=== PATIENT | female | born 1970 | race Caucasian/White ===

== ENCOUNTER 2017-08-06 05:03 | Emergency (ER) | payer OTHER ==
[~2017-08-06] VITALS: Ht 165.1 cm; Wt 102.1 kg
[~2017-08-06 05:03] MED LIST: ACYCLOVIR800 MG PO; KEFLEX 500MG.500 MG PO; NORCO 325 MG-51 TAB PO; PROPRANOLOL HCL20 MG PO; VICODIN 5/500 T1 TAB PO; VOLTAREN75 MG PO
[2017-08-06 05:17] LABS: URINE BILIRUBIN - DIPSTICK NEGATIVE (NEG); URINE BLOOD NEGATIVE (NEG)
[2017-08-06] MEDS ORDERED: LISINOPRIL10 MG PO (05:17)
--- OUTSIDE RECORDS SUMMARY | 2017-08-06 05:28 | External Medical Summary Rpt | CCD ---
Author Author , MARIZOL FONTANA Address Unknown Phone [email or web address] Purpose Continuity of Care Document - 04-28-2017 through 2016 Problems Code Diagnosis DOS Provider Status M25.519 PAIN IN 04-28-2017 UNSPECIFIED SHOULDER B02.9 ZOSTER WITHOUT COMPLICATIO NS Results Labs Lab Lab Date Result Refere Interp Status Commen Order Detail nces retati t Range on Urinalysis with microscopy (08-06-2017 05:10) Urine 08-06- CLEAR CLEAR complet appeara 017 CLEAR L ed nce 05:10 determi nation Amorpho TRACE NONE complet us 017 TRACE L ed sedimen 05:10 t detecti on in urine se Urine NEGATIV NEG complet total 017 E ed bilirub 05:10 NEGATIV in E L detecti on by test Urine NEGATIV NEG complet blood 017 E ed detecti 05:10 NEGATIV on E L Urine YELLOW YELLOW complet color 017 YELLOW ed 05:10 L Glucose 08-06- = NEG complet ur 017 NEGATIV ed test 05:10 E strip Urine NEGATIV NEG complet ketones 017 E ed 05:10 NEGATIV detecti E L on by mg/dL automat ed mayito Mucus NEGATIV NEG complet detecti 017 E ed on in 05:10 NEGATIV urine E L sedimen t by lig Urine NEGATIV NEG complet nitrite 017 E ed 05:10 NEGATIV detecti E L on by test strip Urine = 6.0 5.0-8.5 complet pH 017 ed 05:10 Urine = NEG complet protein 017 NEGATIV ed 05:10 E mg/dL measure ment by automat ed t Urine = 1.025 1.005-1 complet specifi 017 .030 ed c 05:10 gravity measure ment [place] 11-19-2 5-10 0-5 complet s 017 5-10 L ed epithel 05:10 #/hpf ial cells detecti on in u Urine 08-06-2 0.2 0.2 NEG complet urobili 017 L ed nogen 05:10 E.U./dL detecti on by test str Bacteri 08-06-2 FEW FEW O complet a 017 L ed detecti 05:10 on in urine sedimen t by Urinalysis dipstick W Reflex Microscopic panel in Urine (08-06-2017 05:10) Amorpho 08-06-2 TRACE NONE complet us 017 ed sedimen 05:10 t [Presen ce] in Urine sedimen t by Light microsc opy Bacteri 08-06-2 FEW O complet a 017 ed [Presen 05:10 ce] in Urine sedimen t by Light microsc opy Epithel 08-06-2 5-10 0#/hp complet ial 017 f - ed cells.s 05:10 5#/hp quamous f [Presen ce] in Urine sedimen t by Microsc opy high power field Urinalysis dipstick W Reflex Microscopic panel in Urine (08-06-2017 05:10) Appeara 08-06-2 CLEAR CLEAR complet nce of 017 ed Urine 05:10 Bilirub 08-06-2 NEGATIV NEG complet in 017 E ed [Presen 05:10 ce] in Urine by Test strip Erythro 08-06-2 NEGATIV NEG complet cytes 017 E ed [Presen 05:10 ce] in Urine Color 08-06-2 YELLOW YELLOW complet of 017 ed Urine 05:10 Ketones 08-06-2 NEGATIV NEG complet 017 E ed [Presen 05:10 ce] in Urine by Automat ed test strip Mucus -19-2 NEGATIV NEG complet [Presen 017 E ed ce] in 05:10 Urine sedimen t by Light microsc opy Nitrite --2 NEGATIV NEG complet 017 E ed [Presen 05:10 ce] in Urine by Test strip Urobili -19-2 0.2 NEG complet nogen 017 ed [Presen 05:10 ce] in Urine by Test strip
--- OUTSIDE RECORDS SUMMARY | 2017-08-06 05:28 | External Medical Summary Rpt | CCD ---
Author Author [employer] Organization [employer] Address Unknown Phone Unavailable Purpose Continuity of Care Document - through 2016
--- OUTSIDE RECORDS SUMMARY | 2017-08-06 05:28 | External Medical Summary Rpt | CCD ---
Author Author , MARIZOL FONTANA Address Unknown Phone [email or web address] Purpose Continuity of Care Document - 04-28-2017 [...]
--- OUTSIDE RECORDS SUMMARY | 2017-08-06 05:28 | External Medical Summary Rpt ---
Author Author MARIZOL Draper, [employer] Address Unknown Phone Unavailable Results Urinalysis dipstick W Reflex Microscopic panel in Urine Observa Value Referen Units Interpr Notes Date tion ce etation Range Appeara CLEAR CLEAR No No No Aug 06 nce of informa informa informa 2017 Urine tion in tion in tion in 5:10 AM source source source data data data Amorpho TRACE NONE No No No Aug 06 us informa informa informa 2017 sedimen tion in tion in tion in 5:10 AM t source source source [Presen data data data ce] in Urine sedimen t by Light microsc opy Bacteri FEW O No No No Aug 06 a informa informa informa 2016 [Presen tion in tion in tion in 5:10 AM ce] in source source source Urine data data data sedimen t by Light microsc opy Bilirub NEGATIV NEG No No No Aug 06 in E informa informa informa 2016 [Presen tion in tion in tion in 5:10 AM ce] in source source source Urine data data data by Test strip Erythro NEGATIV NEG No No No Aug 06 cytes E informa informa informa 2016 [Presen tion in tion in tion in 5:10 AM ce] in source source source Urine data data data Color YELLOW YELLOW No No No Aug 06 of informa informa informa 2017 Urine tion in tion in tion in 5:10 AM source source source data data data Glucose NEG No No No Aug 06 [Mass/vol informati informati informati 2016 5:10 ume] in on in on in on in AM Urine by source source source Test data data data strip Ketones NEGATIV NEG mg/dL No No Aug 06 E informa informa 2016 [Presen tion in tion in 5:10 AM ce] in source source Urine data data by Automat ed test strip Mucus NEGATIV NEG No No No Aug 06 [Presen E informa informa informa 2017 ce] in tion in tion in tion in 5:10 AM Urine source source source sedimen data data data t by Light microsc opy Nitrite NEGATIV NEG No No No Aug 06 E informa informa informa 2016 [Presen tion in tion in tion in 5:10 AM ce] in source source source Urine data data data by Test strip pH of 5.0 - 8.5 No Normal No Aug 06 Urine informati informati 2017 5:10 on in on in AM source source data data Protein NEG mg/dL No No Aug 06 [Mass/vol informati informati 2017 5:10 ume] in on in on in AM Urine by source source Automated data data test strip Specific 1.005 - No Normal No Aug 06 gravity 1.030 informati informati 2016 5:10 of Urine on in on in AM source source data data Epithel 5-10 0 - 5 #/hpf No No Aug 06 ial informa informa 2016 cells.s tion in tion in 5:10 AM quamous source source data data [Presen ce] in Urine sedimen t by Microsc opy high power field Urobili 0.2 NEG E.U./dL No No Aug 06 nogen informa informa 2016 [Presen tion in tion in 5:10 AM ce] in source source Urine data data by Test strip Urinalysis dipstick W Reflex Microscopic panel in Urine Observa Value Referen Units Interpr Notes Date tion ce etation Range Appeara CLEAR CLEAR No No No Aug 06 nce of informa informa informa 2016 Urine tion in tion in tion in 5:10 AM source source source data data data Bilirub NEGATIV NEG No No No Aug 06 in E informa informa informa 2016 [Presen tion in tion in tion in 5:10 AM ce] in source source source Urine data data data by Test strip Erythro NEGATIV NEG No No No Aug 06 cytes E informa informa informa 2016 [Presen tion in tion in tion in 5:10 AM ce] in source source source Urine data data data Color YELLOW YELLOW No No No Aug 06 of informa informa informa 2017 Urine tion in tion in tion in 5:10 AM source source source data data data Glucose NEG No No No Aug 06 [Mass/vol informati informati informati 2016 5:10 ume] in on in on in on in AM Urine by source source source Test data data data strip Ketones NEGATIV NEG mg/dL No No Aug 06 E informa informa 2016 [Presen tion in tion in 5:10 AM ce] in source source Urine data data by Automat ed test strip Mucus NEGATIV NEG No No No Aug 06 [Presen E informa informa informa 2016 ce] in tion in tion in tion in 5:10 AM Urine source source source sedimen data data data t by Light microsc opy Nitrite NEGATIV NEG No No No Aug 06 E informa informa informa 2016 [Presen tion in tion in tion in 5:10 AM ce] in source source source Urine data data data by Test strip pH of 5.0 - 8.5 No Normal No Aug 06 Urine informati informati 2016 5:10 on in on in AM source source data data Protein NEG mg/dL No No Aug 06 [Mass/vol informati informati 2016 5:10 ume] in on in on in AM Urine by source source Automated data data test strip Specific 1.005 - No Normal No Aug 06 gravity 1.030 informati informati 2016 5:10 of Urine on in on in AM source source data data Urobili 0.2 NEG E.U./dL No No Aug 06 nogen informa informa 2016 [Presen tion in tion in 5:10 AM ce] in source source Urine data data by Test strip
--- OUTSIDE RECORDS SUMMARY | 2017-08-06 05:28 | External Medical Summary Rpt | CCD ---
Demographics Preferred Language Greenlandic Marital Status Unknown Alevism Affiliation Unknown Race Unknown Ethnic Group Unknown Author Author , BLAS FONTANA Address Unknown Phone Immunization No patient found.
--- OUTSIDE RECORDS SUMMARY | 2017-08-06 05:28 | External Medical Summary Rpt | CCD ---
Demographics Preferred Language German Marital Status Unknown Zoroastrian Affiliation Unknown Race Unknown Ethnic Group Unknown Author Author , BLAS FONTANA Address Unknown Phone Immunization No patient found.
[2017-08-06 06:03] LABS: HEMOGLOBIN 14.3 g/dL (12.2-16.2); LYMPH # 1.5 K/mm3 (0.7-4.5); LYMPH % 26.5 % (10-50.0)
--- NOTE | 2017-08-06 06:27 | Emergency Room Report ---
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 N Clinical Suspician of Infection? N Mental Status: 1 - Regular (Normal Baseline) Sepsis Risk:Low Sepsis Risk Have you (or family members/close friends) recently traveled outside the [place]? N If Yes, where/when: Have you had exposure to infectious disease within the past month? N TB? Other? Specify: Source patient, RN notes reviewed, old records Exam Limitations no limitations Comment pt with acute rt sided abd pain with no rash or hematuria- pt with pain which started today- Cardiac Chest Pain Chest pain indicative of cardiac No Timing/Duration this evening Severity moderate ALLERGIES Coded Allergies: No Known Allergies (12/28/16) Home Medications Reported Medications Lisinopril 10 MG PO DAILY #30 History Medical History General CAD? No Angina: No CT: No Hypertension? Yes Hyperlipidemia? No CHF? No DVT? No PE? No COPD? No Asthma? No Anemia? No GERD? No Gastric ulcers? No GI Bleed? No Hernia? No Thyroid Problems? No Hypothyroidism? No CVA? No Seizures? No Diabetes? No Renal Insuffiency? No End Stage Renal Disease? No UTI? No Stones? No GB Disease: Yes Nephritic Syndrome? No Asplenia? No Hepatitis? No Sickle Cell Disease? No Arthritis? No Migraines? No Cataracts? No Glaucoma? No MRSA? No HIV? No TB? No Anxiety? No Depression? No Cancer? 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 Respiratory denies cough, denies shortness of breath Cardiovascular denies chest pain, denies palpitations, denies syncope Gastrointestinal see HPI, abdominal pain, denies diarrhea, nausea, denies vomiting Genitourinary denies: dysuria, frequency, hesitancy, hematuria. Musculoskeletal denies back pain, denies joint pain, denies joint swelling, denies neck pain Skin denies rash Psychiatric/Neurological denies headache, denies seizure Physical Exam Vital Signs Vital Signs Date Time Temp Pulse Resp B/P Pulse O2 O2 Flow FiO2 Ox Delivery Rate 08/06 0611 76 18 120/73 98 08/06 0532 18 08/06 0510 97.9 79 20 152/77 100 - WBC >12,000 or <4,000 or 10% bands? 2 or more SIRS Criteria Met? B/P:120/73 MAP:102 Creatinine >2.0? UA output<0.5ml/kg/hr for 2 hrs? Platelet count >100,000? Lactate >2.0mmol/1? INR >1.2 or PTT > than 60 sec? Evidence of Organ Dysfunction? Provider documented clinical suspician of infection? N Sepsis Criteria Count: 1 Sepsis Risk: Low Sepsis Risk General Appearance no apparent distress Eye Exam - bilateral eye PERRL, bilateral eye EOMI Ear, Nose, Throat normal ENT inspection Neck supple Respiratory Status No: respiratory distress. 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 No Results/Orders Laboratory Tests 08/06/17 0530: Sodium 141, Potassium 4.1, Chloride 104, Carbon Dioxide 27, BUN 13, Creatinine 0.9, Estimated Creat Clear 123, Estimated GFR (MDRD) 67, Glucose 148 H, Calcium 8.7, Total Bilirubin 0.4, AST 19, ALT 29, Alkaline Phosphatase 109, Total Protein 7.4, Albumin 3.9, Globulin 3.5 H, Albumin/Globulin Ratio 1.1, Amylase 35, Lipase 189, WBC 5.7, RBC 4.60, Hgb 14.3, Hct 43.2, MCV 94.0, RDW 13.1, Plt Count 215, MPV 9.4, Gran % 65.1, Gran # 3.7, Lymphocytes % 26.5, Monocytes % 4.8 , Eosinophils % 2.6, Basophils % 0.9, Lymphocytes # 1.5, Monocytes # 0.3, Eosinophils # 0.2, Basophils # 0.1, PUBS MCHC 33.1, MCH 31.1 08/06/17 0510: Urine Color YELLOW, Urine Appearance CLEAR, Urine pH 6.0, Ur Specific Corinne 1.025, Urine Protein NEGATIVE, Urine Ketones NEGATIVE, Urine Blood NEGATIVE, Urine Nitrate NEGATIVE, Urine Bilirubin NEGATIVE, Urine Urobilinogen 0.2, Ur Leukocyte Esterase NEGATIVE, Ur Squamous Epith Cells 5-10, Amorphous Sediment TRACE, Urine Bacteria FEW, Urine Glucose NEGATIVE Current Medication Orders Sig/Ольга Start time Last Medication Dose Route Stop Time Status Admin Ketorolac 30 MG ONCE ONE 08/06 530 DC 08/06 Tromethamine IV 08/06 531 0532 Ondansetron HCl 4 MG ONCE ONE 08/06 530 DC 08/06 IV 08/06 531 0533 Ondansetron HCl 0 .STK-MED ONE 08/06 530 DC .ROUTE Sodium Chloride 10 ML PRN PRN 08/06 530 AC IV 08/07 0524 Ketorolac 0 .STK-MED ONE 08/06 529 DC Tromethamine .ROUTE Orders Procedure Date/time Status DIET-NOTHING BY MOUTH 08/[address] ABD & PELVIS W/O CONTRAST 08/[address] ABD W/RLQ PAIN REQ 08/06 528 Active IV SALINE LOCK 08/06 528 Active LIPASE 08/06 528 Complete CBC WITH AUTO DIFF 08/06 528 Complete CHEM 12 PROFILE 08/06 528 Complete AMYLASE 08/06 528 Complete URINALYSIS/COMPLETE 08/06 0507 Complete XRAY/CT/US XRAY/CT/US CT abdomen, pelvis CT interpretation by discussed w/radiologist Time results known: 0638 CT Results abnormal (see report) Departure Departure Time of Disposition 0639 Disposition DC Home or Self Care(routine) Clinical Impression Primary Impression: Abdominal pain Qualifiers: Abdominal location: unspecified location Qualified Code: R10.9 - Unspecified abdominal pain Condition STABLE Referrals CHARISMA MARTINEZ APRN (Family) Patient Instructions DI for Abdominal Pain-Adult Additional Instructions use meds and see pcp for follow up Discharge Counseling Counseled pt/family regarding diagnosis, test results, medications/RX, follow up needs ED Critical Care Critical Care No at 0640
[2017-08-06 06:57] VITALS: BP 120/73
--- NOTE | 2017-08-06 13:12 | RADIOLOGY REPORT PS360 ---
CT ABD PELVIS W/O CONTRAST Ordering Physician: Sabina Alanis MD Patient Age: 47 years: Female HISTORY: RLQ PAIN . Difficulty with urination TECHNIQUE: Helical CT is performed the abdomen pelvis with no oral nor IV contrast utilized. COMPARISON :No relevant studies FINDINGS Lung bases appear clear with no acute findings. Borderline airway thickening. Heart normal size Abdomen/pelvis. Lack of oral and IV contrast decreases sensitivity. Liver, spleen, pancreas unremarkable on this noncontrast study Gallbladder is been removed. No biliary ductal dilatation. Kidneys. No urinary tract calculi nor obstruction. Ureters unremarkable. Urinary Bladder appears satisfactory.. Not distended. No calculi but no wall thickening . Right kidney. . indistinctness of the medullary fat the right kidney. Nonspecific observation but can be seen with inflammation from UTI or possibly pyelonephritis.. Warrants correlation with urinalysis. . Pelvis with no adnexal masses. Postsurgical changes pelvis from hysterectomy.. Phleboliths. No significant pelvic nor retroperitoneal nor mesenteric adenopathy. GI tract. Unremarkable. No bowel dilatation or obstruction. Appendix well-visualized & normal. Moderate stool at the cecum and right with minimal stool otherwise throughout the colon including rectum. Small bowel normal caliber with a few small air-fluid levels. Unimpressive.. No free air no free fluid abdomen or pelvis.. . Small fat-containing umbilical hernia best seen on sagittal image 63.. Just inferior to this is also a small 7 mm midline ventral hernia with small Para Umbilical hernia and mild bulging of fat here. Doubt of significance. No inflammation. Does not appear to be of significance. . No osseous lesions. Degenerative facet changes lower L-spine noted. Minor sclerotic changes SI joints bilaterally most evident on left. Nonspecific. IMPRESSION: -------- 1. No acute findings abdomen pelvis. Appendix is normal. Concur with [facility] report 2. Right kidney with slight hazy appearance throughout medullary fat.-Nonspecific but can be seen with UTI or inflammation. Correlation required with urinalysis. . No urinary tract calculi nor obstruction evident otherwise 3. Incidental small fat-containing umbilical hernia as well as tiny periumbilical hernia just below umbilicus.... Do not appear to be of current significance.- No bowel loops involve
== END 2017-08-06 07:02 | disposition home or self-care (01) ==
LOC: ER 05:03
PROVIDERS: Emergency Medicine
DX: R10.32 Left lower quadrant pain (principal); I10 Essential (primary) hypertension; F17.210 Nicotine dependence, cigarettes, uncomplicated
CPT/HCPCS: J2405